=== PATIENT | female | born 1975 | race Asian ===

== ENCOUNTER 2019-02-12 23:42 | Emergency (ER) | payer OTHER ==
[~2019-02-12] VITALS: Ht 162.6 cm; Wt 84.1 kg
[2019-02-12] MEDS ORDERED: ESCI20TA PO (23:57)
[2019-02-12] MEDS ORDERED: QUET100T PO (23:57)
[2019-02-12] MEDS ORDERED: VERA80 PO (23:57)
[2019-02-13] VITALS: BP 155/112
[2019-02-13] MEDS ORDERED: FLUORESCEIN SODIUM 1 MG STRIP ONE ×2 (03:08→03:20)
[2019-02-13] MEDS ORDERED: GENTAMICIN SULFATE 0.3% OPHTHALMIC SOLUTION 5 ML OS ONE (03:15)
[2019-02-13] MEDS ORDERED: PROPARACAINE HCL 0.5% 15 ML OPHTHALMIC SOLUTION OU ONE (03:15)
== END 2019-02-13 03:55 | disposition home or self-care (01) ==
LOC: EMS 23:42
DX: H10.9 Unspecified conjunctivitis (principal); I10 Essential (primary) hypertension; F31.9 Bipolar disorder, unspecified; Z79.899 Other long term (current) drug therapy

== ENCOUNTER 2020-04-17 21:22 | Emergency (ER) | payer MEDICAID, OTHER ==
[~2020-04-17] VITALS: Ht 162.6 cm; Wt 79.5 kg
[~2020-04-17 21:22] MED LIST: ESCI20TA87 PO; QUET100T PO; VERA80 PO
[2020-04-17] MEDS ORDERED: QUET25TA PO (21:25)
[2020-04-17] MEDS ORDERED: AMLO-258 PO (21:25)
[2020-04-17] MEDS ORDERED: ONDANSETRON HCL 4 MG TABLET PO ONE (22:45)
[2020-04-17] MEDS ORDERED: QUEtiapine FUMARATE 25 MG TABLET PO ONE (22:45)
[2020-04-17 22:46] VITALS: BP 148/80
== END 2020-04-17 23:00 | disposition home or self-care (01) ==
LOC: EMS 21:22
DX: R11.0 Nausea (principal); F31.9 Bipolar disorder, unspecified; I10 Essential (primary) hypertension; Z76.0 Encounter for issue of repeat prescription
CPT/HCPCS: 99283; Q0162

== ENCOUNTER 2021-02-11 23:14 | Emergency (ER) | payer MEDICAID ==
[~2021-02-11] VITALS: Ht 162.6 cm; Wt 86.4 kg
[~2021-02-11 23:14] MED LIST changes: +AMLO-258 PO; -ESCI20TA87 PO; -QUET100T PO; +QUET25TA PO; -VERA80 PO
[2021-02-12] MEDS ORDERED: QUEtiapine FUMARATE 25 MG TABLET PO ONE (01:00)
[2021-02-12 01:23] VITALS: BP 132/88
== END 2021-02-12 02:21 | disposition home or self-care (01) ==
LOC: EMS 23:14
DX: Z76.0 Encounter for issue of repeat prescription (principal); F20.9 Schizophrenia, unspecified; F31.9 Bipolar disorder, unspecified; I10 Essential (primary) hypertension
CPT/HCPCS: 99281; Z7502; Z7610

== ENCOUNTER 2023-10-01 20:08 | Emergency (ER) | payer MEDICAID ==
[~2023-10-01] VITALS: Ht 162.6 cm; Wt 84.1 kg
[2023-10-01 20:34] LABS: COVID AG,FIA SOURCE NASAL SWAB
[2023-10-01 20:53] LABS: INFLUENZA TYPE B NEGATIVE FOR TYPE B (NEGATIVE)
[2023-10-01 20:55] LABS: SARS-COV2 (COVID) ANTIGEN,FIA Negative (Negative)
[2023-10-01 21:00] VITALS: BP 148/96; PULSE 88; RESP 16; TEMP 101.1
[2023-10-01 21:02] LABS: INFLUENZA TYPE A POSITIVE FOR TYPE A (NEGATIVE)
[2023-10-01] MEDS ORDERED: OSEL75 PO (23:04)
[2023-10-01] MEDS ORDERED: ACETAMINOPHEN 500 MG TABLET PO ONE (23:15)
== END 2023-10-01 23:40 | disposition home or self-care (01) ==
LOC: EMS 20:09
DX: J10.1 Influenza due to other identified influenza virus with other respiratory manifestations (principal); F31.9 Bipolar disorder, unspecified; I10 Essential (primary) hypertension; Z53.21 Procedure and treatment not carried out due to patient leaving prior to being seen by health care provider
CPT/HCPCS: 87804; 99283

== ENCOUNTER 2024-03-17 00:11 | Emergency (ER) | payer MEDICAID ==
[~2024-03-17] VITALS: Ht 162.6 cm; Wt 81.8 kg
[~2024-03-17 00:11] MED LIST changes: +OSEL75 PO
[2024-03-17 04:00] VITALS: BP 145/98; PULSE 89; RESP 20; TEMP 98.3
[2024-03-17] MEDS ORDERED: LIDO700A15 TP (04:10)
[2024-03-17] MEDS: LIDOCAINE 5% TRANSDERMAL PATCH TD ONE (04:13)
[2024-03-17] MEDS: KETOROLAC TROMETHAMINE 30 MG/ML VIAL IM ONE (04:13)
[2024-03-17] MEDS: TraMADol HCL 50 MG TABLET PO ONE (04:16)
== END 2024-03-17 05:00 | disposition home or self-care (01) ==
LOC: EMS 00:12
DX: M25.521 Pain in right elbow (principal); I10 Essential (primary) hypertension
CPT/HCPCS: 99283

== ENCOUNTER 2024-03-28 22:29 | Emergency (ER) | payer MEDICAID ==
[~2024-03-28] VITALS: Ht 162.6 cm; Wt 180.0 kg
[~2024-03-28 22:29] MED LIST changes: +LIDO700A15 TP; -OSEL75 PO; +OSEL75CA45 PO
[2024-03-28 22:49] VITALS: BP 159/124; PULSE 92; RESP 18; TEMP 98
[2024-03-29] MEDS: KETOROLAC TROMETHAMINE 30 MG/ML VIAL IM ONE (02:39)
[2024-03-29] MEDS: TraMADol HCL 50 MG TABLET PO ONE (02:39)
[2024-03-29] MEDS ORDERED: TRAM50TA5 PO (02:43)
[2024-03-29] MEDS: LIDOCAINE 5% TRANSDERMAL PATCH TD ONE (02:59)
== END 2024-03-29 03:04 | disposition home or self-care (01) ==
LOC: EMS 22:29
DX: M23.303 Other meniscus derangements, unspecified medial meniscus, right knee (principal); I10 Essential (primary) hypertension; F31.9 Bipolar disorder, unspecified
CPT/HCPCS: 99283; 73562; 96372; J1885

== ENCOUNTER 2024-07-02 21:38 | Emergency (ER) | payer MEDICAID ==
[~2024-07-02] VITALS: Ht 162.6 cm; Wt 84.1 kg
[~2024-07-02 21:38] MED LIST changes: +TRAM50TA5 PO
[2024-07-02 21:42] VITALS: BP 154/96; PULSE 89; RESP 18; TEMP 98.2; O2SAT 98
[2024-07-02 22:23] LABS: COVID AG,FIA SOURCE NASAL SWAB
[2024-07-02 22:31] LABS: SARS-COV2 (COVID) ANTIGEN,FIA Negative (Negative)
[2024-07-02 22:35] LABS: INFLUENZA TYPE A NEGATIVE FOR TYPE A (NEGATIVE); INFLUENZA TYPE B NEGATIVE FOR TYPE B (NEGATIVE)
[2024-07-03] MEDS ORDERED: ALBU18HF12 IH (01:40)
[2024-07-03] MEDS ORDERED: AMLO-258 PO (01:41)
[2024-07-03] MEDS ORDERED: AZIT250T9 PO (01:41)
== END 2024-07-03 02:00 | disposition home or self-care (01) ==
LOC: EMS 21:38
DX: J18.0 Bronchopneumonia, unspecified organism (principal); I10 Essential (primary) hypertension; F31.9 Bipolar disorder, unspecified; Z20.822 Contact with and (suspected) exposure to COVID-19
CPT/HCPCS: 71045; 87804; 99284

== ENCOUNTER 2025-08-24 22:41 | Emergency (ER) | payer MEDICAID ==
[~2025-08-24] VITALS: Ht 162.6 cm; Wt 81.8 kg
[~2025-08-24 22:41] MED LIST changes: +ALBU18HF12 IH; +LIDO-57 TP; -LIDO700A15 TP
[2025-08-24 23:10] LABS: COVID AG,FIA SOURCE NASAL SWAB
[2025-08-24 23:25] LABS: RAPID GROUP A STREP PRELIM. NEGATIVE (NEGATIVE)
[2025-08-24 23:33] LABS: SARS-COV2 (COVID) ANTIGEN,FIA Negative (Negative)
[2025-08-24 23:36] LABS: INFLUENZA TYPE A NEGATIVE FOR TYPE A (NEGATIVE); INFLUENZA TYPE B NEGATIVE FOR TYPE B (NEGATIVE)
[2025-08-25 02:50] VITALS: BP 143/85; PULSE 78; RESP 16; TEMP 97.9; O2SAT 99
[2025-08-25] MEDS ORDERED: AZIT250T9 PO (02:55)
[2025-08-25] MEDS ORDERED: BENZ-227 PO (02:55)
== END 2025-08-25 04:42 | disposition home or self-care (01) ==
LOC: EMS 22:41
DX: J18.0 Bronchopneumonia, unspecified organism (principal); F31.9 Bipolar disorder, unspecified; I10 Essential (primary) hypertension; Z79.899 Other long term (current) drug therapy; Z20.822 Contact with and (suspected) exposure to COVID-19
CPT/HCPCS: 87081; 87430; 87804; 99283